=== PATIENT | male | born 1995 | race Caucasian/White ===

== ENCOUNTER 2017-05-02 18:52 | Emergency (ER) | payer SELFPAY ==
[2017-05-02 19:36] VITALS: BP 136/76
[2017-05-02] MEDS ORDERED: Fluorescein Sodium TOPICAL* 1 MG TEST ONE (19:37)
[2017-05-02] MEDS ORDERED: Tetracaine 0.5% OPTH.SOL 4 ML* 1 DROP BTL ONE (19:38)
[2017-05-02] MEDS ORDERED: BSS OPTH.SOL* BTL ONE (19:38)
[2017-05-02] MEDS ORDERED: Polymyx/Trimethoprim OPTH* 10 ML BTL LEFT EYE ONE (20:06)
[2017-05-02] MEDS ORDERED: Polymyx/Trimethoprim OPTH* 10 ML BTL ONE (20:25)
--- NOTE | 2017-05-02 20:29 | UC ---
Eye Complaint HPI - HPI Summary HPI Summary: 22 yo male was at work today when he developed a fb sensation under his left upper eyelid progressive eye pain and photophobia feels like fb moving around Td up to date - History of Current Complaint Chief Complaint: UCEye Stated Complaint: LEFT EYE COMPLAINT WC Time Seen by Provider: 05/02/17 19:48 Hx Obtained From: Patient Onset/Duration: Sudden Onset, Lasting Hours Timing: Constant Severity Initially: Mild Severity Currently: Moderate Pain Intensity: 6 Pain Scale Used: 0-10 Numeric Location of Injury: Eye Lid (upper) Character: Foreign Body Sensation Aggravating Factor(s): Light Associated Signs And Symptoms: Positive: Photophobia, Drainage (Clear) Eyes: 1 - large corneal abrasion with many parallel abrasions lateral aspect of florescien uptake - Risk Factors Penetrating Injury Risk Factor: Negative Globe Rupture Risk Factors: Negative Acute Glaucoma Risk Factors: Negative Optic Artery Occlusion Risk Factors: Negative - Allergies/Home Medications Allergies/Adverse Reactions: Allergies Allergy/AdvReac Type Severity Reaction Status Date / Time No Known Allergies Allergy Verified 05/02/17 19:35 PMH/Surg Hx/FS Hx/Imm Hx Previously Healthy: Yes - Surgical History Surgical History: Yes Surgery Procedure, Year, and Place: left foot reconstruction/flat foot from - Family History Known Family History: Positive: Hypertension - Social History Alcohol Use: Occasionally Substance Use Type: None Smoking Status (MU): Never Smoked Tobacco Review of Systems Constitutional: Negative Skin: Negative Eyes: Eye Redness, Photophobia ENT: Negative Respiratory: Negative Cardiovascular: Negative Gastrointestinal: Negative Genitourinary: Negative Motor: Negative Neurovascular: Negative Musculoskeletal: Negative Neurological: Negative Psychological: Negative All Other Systems Reviewed And Are Negative: Yes Physical Exam Triage Information Reviewed: Yes Appearance: Well-Appearing, No Pain Distress, Well-Nourished Vital Signs: Initial Vital Signs Temp 98.6 F 05/02/17 19:32 Pulse 63 05/02/17 19:32 Resp 16 05/02/17 19:32 BP 136/76 05/02/17 19:32 Pulse Ox 98 05/02/17 19:32 Eyes: Positive: Conjunctiva Inflamed - left ENT: Positive: Hearing grossly normal. Negative: Nasal congestion, Nasal drainage, Trismus, Muffled/hoarse voice Dental: Negative: Gross Decay/Caries @, Dental Fracture @ Neck: Positive: Supple, Nontender, No Lymphadenopathy Respiratory: Positive: Lungs clear, Normal breath sounds, No respiratory distress, No accessory muscle use Cardiovascular: Positive: RRR, No Murmur, Pulses Normal Abdomen Description: Positive: No Organomegaly, Soft, Bruit Musculoskeletal: Positive: ROM Intact, No Edema Neurological: Positive: Alert, Muscle Tone Normal Psychological Exam: Normal Skin Exam: Normal Procedures - Eye Procedure Alcaine Drops Administered: Yes - 2 tetracaine drops left eye applied by me Eye FB Removal: removal w/ cotton swab - minute FB remove with swab Eye Complaint Course/Dx - Differential Dx/Diagnosis Provider Diagnoses: corneal abrasion left. corneal foreign body left upper lid Discharge - Discharge Plan Condition: Stable Disposition: HOME Patient Education Materials: Corneal Abrasion (ED), Eye Foreign Body (ED) Forms: *Work Release Referrals: Satya Daniel MD [Medical Doctor] - 1 Day Franko Puri MD [Medical Doctor] - 1 Day Mikala Alonzo MD [Medical Doctor] - 1 Day Additional Instructions: use drops as directed I suggest you see an hook and eye attacher tomorrow both to recheck the abrasions and to make sure the foreign body is out advil or aleve as needed for pain sunglasses if you have trouble making an appt please call us in AM
== END 2017-05-02 20:28 | disposition home or self-care (01) ==
LOC: UCCORT 18:52
DX: T15.02XA Foreign body in cornea, left eye, initial encounter (principal); X58.XXXA Exposure to other specified factors, initial encounter; Y93.9 Activity, unspecified; Y92.9 Unspecified place or not applicable; Y99.0 Civilian activity done for income or pay
CPT/HCPCS: 65220; 99212; A9270-GY; G0463

== ENCOUNTER 2018-01-18 11:32 | Day surgery (SDC) | payer OTHER ==
[2018-01-18] MEDS ORDERED: ceFAZolin 2 GM PREMIX (*) 2 GM/50 ML BAG IVPB ONE (12:04)
[2018-01-18] MEDS ORDERED: PROCHLORPERAZINE INJ 5 MG/ML 2 ML VIAL IV PRN (13:13)
[2018-01-18] MEDS ORDERED: Acetaminophen TAB* 325 MG PO PRN (13:13)
[2018-01-18] MEDS ORDERED: fentaNYL* 50 MCG/ML 2 ML VIAL (100 MCG VIAL) IV PRN (13:13)
[2018-01-18] MEDS ORDERED: Ondansetron INJ* 2 MG/ML VIAL IV PRN (13:13)
[2018-01-18] MEDS ORDERED: DiMENhydriNATE IV* 50 MG/ML VIAL IV PUSH PRN (13:13)
[2018-01-18] MEDS ORDERED: Naloxone* 0.4 MG/ML 1 ML VIAL IV PRN (13:13)
[2018-01-18] MEDS ORDERED: fentaNYL* 50 MCG/ML 2 ML VIAL (100 MCG VIAL) ONE (13:15)
[2018-01-18] MEDS ORDERED: Midazolam* 1 MG/ML 2 ML VIAL (2 MG) ONE (13:16)
[2018-01-18] MEDS ORDERED: Bupivacaine 0.25% SDV* 30 ML ONE (13:23)
[2018-01-18] MEDS ORDERED: Dexamethasone IV* 4 MG/ML 1 ML (4 MG) ONE (13:40)
[2018-01-18] MEDS ORDERED: Ketorolac INJ* 30 MG/ML 1 ML VIAL ONE (13:40)
[2018-01-18] MEDS ORDERED: Ondansetron INJ* 2 MG/ML VIAL ONE (13:40)
[2018-01-18] MEDS ORDERED: Propofol* 10 MG/ML 20 ML BTL IV PUSH ONE (13:40)
[2018-01-18] MEDS ORDERED: HYDROcodone/ACETAMIN 5-325 MG* 1 TAB ONE (15:05)
[2018-01-18 15:28] VITALS: BP 121/69
--- NOTE | 2018-01-19 06:06 | OP ---
DATE OF OPERATION: 01/18/18 - [facility] DATE OF : 89 SURGEON: Owen Herrera MD PROPERTY UTILIZATION OFFICER: VIKTOR Piña ANESTHESIOLOGIST: Dr. Kirkpatrick. ANESTHESIA: General. PRE-OP DIAGNOSIS: Left thumb with splitter injury with soft tissue loss. POST-OP DIAGNOSIS: Left thumb with splitter injury with extensive traumatic wound involving multiple flaps of skin tissue, and extensive nail bed repair involving both the germinal and sterile matrices. OPERATIVE PROCEDURE: 1. Debridement of left thumb with splitter wound, removal of foreign material. 2. Closure of left thumb soft tissue wound with local rotational flap and soft tissue rearrangement. 3. Repair of nail bed involving both germinal matrix and sterile matrix. ESTIMATED BLOOD LOSS: 2 mL. COMPLICATIONS: None. INDICATIONS: The patient is a 22-year-old. The finger got caught in a wood splitter. He had the thumb washed and closed to the extent possible by Dr. Villegas up in [place]. He then sent him over to me for definitive hand surgical treatment. I talked to his mother and Radha about the need to potentially do a regional flap such as a pedicle island, first dorsal metacarpal artery flap or some other type of local flap to get the wound closed. I told them I would try to get it closed with local rotational flaps or advancement of flaps if at all possible. They understand, they wished to proceed. FINDINGS: See above and below. DESCRIPTION OF PROCEDURE: Radha was seen in the preoperative holding area. The correct side, site, and procedure were identified. We came back to the operating room where the arm was prepped and draped in the usual fashion. A time-out was performed. I began by placing the tourniquet on the finger and leaving this on approximately throughout the procedure. The what sutures were present, were removed. The wound was taken down and thorough irrigation and debridement was performed debriding the organic contamination that was present. This was done under a 3.5 times Loupe magnification. Once I had debrided, the skin and subcutaneous tissue and fascia, I was able to examine the wound. The bone was intact. There was a large rent coursing longitudinally through the sterile matrix. It was jagged and involved a large portion of the central germinal matrix, in fact the largest injury was to the central portion of the germinal matrix. I made oblique incisions on either side of my nail fold and was able to retract this back to examine the germinal matrix. At this point, I was able to take a 6-0 chromic suture and repair the distal aspect of the germinal matrix centrally. I was able to repair the entirety of the sterile matrix with multiple simple 6-0 chromic gut sutures. Ultimately, the proximal aspect of the central portion of the germinal matrix was simply gone and not repairable. At this point, I tacked back my nail fold flap with a couple of 4-0 nylon sutures and I examined the complex wound that he had on the volar and radial aspect of the thumb. There were multiple flaps. The largest area of soft tissue loss was over the distal radial aspect of the thumb. Ultimately, I was able to take my most distal flap and back cut it a little bit and then rotate it as a rotational flap to create soft tissue closure. This was toward the junction of the sterile matrix and the fingertip skin. I was also able to bring palmar radial flap up and with a nylon suture brought up over the sterile matrix and a piece of aluminium foil that I had placed into the nail fold to keep it splinted open. I was able to repair the nail fold on the radial aspect of the sterile matrix. I had tacked a piece of aluminium foil from the chromic gut suture wrapper into the nail fold with a couple of 4-0 nylon sutures prior to placing that stitch. Once I had closed down the wound and gotten the area of soft tissue loss closed, I was then able to tack down the remainder of the flaps with multiple simple interrupted 4-0 nylon sutures. There were a total of 4 flaps of tissue that were closed and rearranged was about a cm in length. Ultimately, the finger tip came together quite nicely. The wound was nicely closed. The area of soft tissue loss was covered. The nail folds were all restored. The biggest area of concern was the proximal aspect of the germinal matrix, we will just have to wait and see what kind of a nail grows, but I think it is going to be a poorly shaped and potentially missing part of the nail. The thumb tip was then dressed with Xeroform, 1-inch Carmella and Coban. The tourniquet was let off. I had placed a digital block prior to beginning the procedure. With the wounds dressed, the patient was woken up and taken to recovery room in stable condition. POSTOPERATIVE PLAN: We will let all the skin flaps heal up. We will wait to see what kind of a nail grows. Ultimately, if the nail is unacceptable, we will come back at a future date and do a nail ablation and skin grafting. [id number]/CPS #: [id number] MTDD
== END 2018-01-18 15:29 | disposition home or self-care (01) ==
LOC: OREAST 11:32
PROVIDERS: ATTEND Orthopaedic Surgery Hand Surgery
DX: S61.122A Laceration with foreign body of left thumb with damage to nail, initial encounter (principal); W31.2XXA Contact with powered woodworking and forming machines, initial encounter; Y92.89 Other specified places as the place of occurrence of the external cause
CPT/HCPCS: J0690; J1100; J1885; J2250; J2405; J2704; J3010